=== PATIENT | male | born 1990 | race Caucasian/White ===

== ENCOUNTER 2016-10-06 22:08 | Emergency (ER) | payer OTHER ==
[~2016-10-06] VITALS: Ht 170.2 cm; Wt 64.0 kg
[2016-10-06 23:50] LABS: BASOPHILS % 0.3 % (0.0-2.0); EOSINOPHILS % 2.1 % (0.0-5.0); HEMATOCRIT. 45.2 % (36.0-48.0); HEMOGLOBIN. 15.2 g/dL (12.0-16.0); LYMPHOCYTES % 11.7 % (20.0-50.0); MEAN CORPUSCULAR HEMOGLOBIN 30.8 pg (28.0-32.0); MEAN CORPUSCULAR VOLUME 91.4 fL (81.0-99.0); MEAN PLATELET VOLUME 9.1 fl (7.4-10.4); MONOCYTES % 4.8 % (2.0-8.0); NEUTROPHILS % 81.1 % (40.0-76.0); PLATELET 192 x1000/uL (130-400); RED BLOOD CELL COUNT 4.94 mill/uL (4.2-5.4); RED CELL DISTRIBUTION WIDTH 13.6 % (11.6-14.6)
[2016-10-06 23:56] LABS: CHLORIDE 103 mEq/L (98-107)
[2016-10-07 00:04] LABS: CARBON DIOXIDE 27 mEq/L (21-32); ETHANOL BLOOD 160 mg/dL
[2016-10-07 05:26] VITALS: BP 102/60
== END 2016-10-07 05:25 | disposition home or self-care (01) ==
LOC: EDSEX 22:12 → ER 22:12 → EDBD 22:12 → ER 10-07 05:25
DX: T51.0X1A Toxic effect of ethanol, accidental (unintentional), initial encounter (principal); R41.82 Altered mental status, unspecified; Y92.29 Other specified public building as the place of occurrence of the external cause
CPT/HCPCS: 36415; 80053; 85025; 99284; G0482; Z7610